=== PATIENT | female | born 1955 | race Caucasian/White ===

== ENCOUNTER 2021-02-05 10:23 | Outpatient (CLI) | payer MEDICARE, MEDICAID ==
[~2021-02-05 10:23] MED LIST: ADV50100 IH; ALBU18HF2 IH; AZIT-63 PO; CLON-527 PO; ENAL20TA75 PO; ESOM40CA PO; FENO145T38 PO; INSU100V36 SQ; LOVA40TA76 PO; PHEN50TA PO; PIOG30TA2 PO; PRED50TA PO; PROM25TA14 PO; SAXA5TAB PO; SYN0.112T PO; TIOT18CA7 IH
== END 2021-02-05 23:59 | disposition home or self-care (01) ==
LOC: RAD 10:23
PROVIDERS: ATTEND Physician Assistant Medical
DX: G40.909 Epilepsy, unspecified, not intractable, without status epilepticus (principal)
CPT/HCPCS: 95819